=== PATIENT | male | born 1960 | race Caucasian/White ===

== ENCOUNTER → 2020-04-21 | Outpatient (CLI) | payer OTHER ==
[~2020-04-21] MED LIST: ASPI81TA45 PO; LEVO125T5 PO; MULT-516 PO
== END | disposition home or self-care (01) ==
LOC: STAR 14:52
PROVIDERS: ATTEND Otolaryngology
DX: Z01.812 Encounter for preprocedural laboratory examination (principal); Z20.828 Contact with and (suspected) exposure to other viral communicable diseases; J32.0 Chronic maxillary sinusitis
CPT/HCPCS: 87635; 93005

== ENCOUNTER 2020-04-26 05:34 | Day surgery (SDC) | payer OTHER ==
[~2020-04-26] VITALS: Ht 170.2 cm; Wt 76.0 kg
[2020-04-26 06:03] VITALS: BP 114/79
[2020-04-26] MEDS ORDERED: LIDOCAINE/PF 1%, 30ML ONE (06:26)
[2020-04-26] MEDS ORDERED: FLUORESCEIN SODIUM 500 MG/5 ML ONE (06:26)
[2020-04-26] MEDS ORDERED: EPINEPHRINE TOPICAL SOLN 1 MG/ML, 30ML ONE (06:26)
[2020-04-26] MEDS ORDERED: BACITRACIN 50,000 UNIT ONE (06:27)
[2020-04-26] MEDS ORDERED: EPINEPHRINE 1 MG/ML, 1ML ONE (06:27)
[2020-04-26] MEDS ORDERED: BACITRACIN OINT 500U/GM, 15 GM ONE (06:27)
[2020-04-26] MEDS ORDERED: OXYMETAZOLINE NASAL SPRAY 0.05%,30ML ONE (06:27)
[2020-04-26] MEDS ORDERED: LACTATED RINGERS 1,000 ML IV SCH (06:30)
[2020-04-26] MEDS ORDERED: CHLORHEXIDINE 15 ML UDC MM ONE (06:30)
[2020-04-26] MEDS ORDERED: FENTANYL PF 250 MCG/5ML ONE (06:53)
[2020-04-26] MEDS ORDERED: PROPOFOL 50 ML ONE (07:00)
[2020-04-26] MEDS ORDERED: LORazepam 2 MG/ML, 1ML IVPush PRN (08:30)
[2020-04-26] MEDS ORDERED: PROMETHAZINE 25 MG/ML, 1ML IVPush PRN (08:30)
[2020-04-26] MEDS ORDERED: LABETALOL 5MG/ML, 20ML IV PRN (08:30)
[2020-04-26] MEDS ORDERED: OXYcodone 5 MG/5 ML ORAL.SOL UDC PO PRN (08:30)
[2020-04-26] MEDS ORDERED: EPHEDRINE 50 MG/ML, 1ML IVPush PRN (08:30)
[2020-04-26] MEDS ORDERED: METHOCARBAMOL 1,000 MG in DEXTROSE 5% 100 ML IV PRN (08:30)
[2020-04-26] MEDS ORDERED: FENTANYL PF 100 MCG/2ML IV PRN (08:30)
[2020-04-26] MEDS ORDERED: ACETAMINOPHEN 325 MG TABLET PO PRN (08:30)
[2020-04-26] MEDS ORDERED: MEPERIDINE/PF 25MG/0.5ML IVPush PRN (08:30)
[2020-04-26] MEDS ORDERED: hydrALAzine 20 MG/ML, 1ML IV PRN (08:30)
[2020-04-26] MEDS ORDERED: ONDANSETRON 2MG/ML, 2ML IVPush PRN (08:30)
[2020-04-26] MEDS ORDERED: HYDROmorphone 1 MG/ML, 1ML INJ IVPush PRN (08:30)
[2020-04-26] MEDS ORDERED: SUCCINYLCHOLINE 20 MG/ML, 10ML ONE (10:51)
[2020-04-26] MEDS ORDERED: DEXAMETHASONE 4 MG/ML, 1ML ONE (10:51)
[2020-04-26] MEDS ORDERED: ROCURONIUM 10MG/ML,5ML ONE (10:51)
[2020-04-26] MEDS ORDERED: PROPOFOL 10 MG/ML, 20ML ONE (10:51)
[2020-04-26] MEDS ORDERED: CEFAZOLIN 1,000 MG ONE (10:51)
[2020-04-26] MEDS ORDERED: ONDANSETRON 2MG/ML, 2ML ONE (10:51)
== END 2020-04-26 10:35 | disposition home or self-care (01) ==
LOC: OUT 05:34
PROVIDERS: ATTEND Otolaryngology
DX: J32.8 Other chronic sinusitis (principal); J32.0 Chronic maxillary sinusitis; Z79.899 Other long term (current) drug therapy; Z98.890 Other specified postprocedural states; Z79.82 Long term (current) use of aspirin; Z87.891 Personal history of nicotine dependence; Z72.89 Other problems related to lifestyle
CPT/HCPCS: 31254; 31267; 87070; 87075; 87102; 87205; 88304; J0171; J0330; J0690; J1100; J2405; J2704; J3010; J7120

== ENCOUNTER 2020-05-03 11:53 | Day surgery (SDC) | payer OTHER ==
[~2020-05-03] VITALS: Ht 170.2 cm; Wt 80.0 kg
[2020-05-03 12:22] VITALS: BP 141/88
[2020-05-03] MEDS ORDERED: OXYMETAZOLINE NASAL SPRAY 0.05%,30ML ONE (12:55)
[2020-05-03] MEDS ORDERED: LIDOCAINE 4%, 4 ML SYR/CANN TP ONE (12:55)
== END 2020-05-03 13:37 | disposition home or self-care (01) ==
LOC: OUT 11:53
PROVIDERS: ATTEND Otolaryngology
DX: J32.0 Chronic maxillary sinusitis (principal); Z20.828 Contact with and (suspected) exposure to other viral communicable diseases
CPT/HCPCS: 87635